=== PATIENT | male | born 1980 | race African-American/Black ===

== ENCOUNTER 2018-09-23 18:39 | Emergency (ER) | payer BC ==
[2018-09-23] MEDS: IBUPROFEN 800 MG TAB PO (19:03)
[2018-09-23] MEDS: LIDOCAINE 1% (MPF) 5 ML VIAL INFIL (19:36)
== END 2018-09-23 20:32 | disposition home or self-care (01) ==
LOC: FTE 18:39
DX: S61.210A Laceration without foreign body of right index finger without damage to nail, initial encounter (principal); S61.212A Laceration without foreign body of right middle finger without damage to nail, initial encounter; F17.210 Nicotine dependence, cigarettes, uncomplicated; W25.XXXA Contact with sharp glass, initial encounter; Y92.89 Other specified places as the place of occurrence of the external cause
CPT/HCPCS: 12002; 73130-RT; 99283-25